=== PATIENT | female | born 1980 | race African-American/Black ===

== ENCOUNTER → 2017-10-26 | Day surgery (SDC) | payer OTHER ==
[~2017-10-26] VITALS: Ht 167.6 cm; Wt 93.4 kg
[~2017-10-26] MED LIST: FLEXERIL10 MG PO; VICODIN5-300 PO
--- NOTE | 2017-10-26 13:29 | Operative Report ---
Operative/Inv Procedure Report Surgery Date: 10/26/17 Name of Procedure: laparoscopy right ovarian cystectomy peritoneal washings Pre-Operative Diagnosis: Pelvic pain Post-Operative Diagnosis: Same right ovarian cyst Estimated Blood Loss: scant Surgeon/[employer] Autom[employer] Architect: Yoav BURNETT,Meme Sepulveda Anesthesia: general endotracheal tube, block Operative/Procedure Note Note: Procedure note patient was taken the operating room placed prone position after adequate induction of general anesthesia via endotracheal tube patient was placed in dorsal lithotomy the vagina from dorsal fashion bladder was catheterized examination under anesthesia performed CO2 tenaculum was placed on the Intralipid cervix on advancements removed from the vagina except a single- tooth tenaculum to surgeon regowned and gloved the abdomen was prepped and draped so fashion at the level the umbilicus a stab incision was made to allow for the entry of Veress needle the abdomen was insufflated after the Veress needle had been inserted with a negative drop test approximately 2.7 L of CO2 were injected into the abdomen on at this point to liver edge dullness. There is needle was removed a 10 mm trocar was inserted atraumatically through that trocar sheath a laparoscope was placed under direct visualization a 5 mm port was placed 2 finger breadths of symptoms pubis in the midline through that port was placed peritoneal washings were obtained at this point a needle was placed into the right ovarian cyst the cyst was drained the wall was ablated on using a Kleppinger hemostasis was apparent pictures were taken maximal CO2 was removed from the abdomen on since removed from the abdomen the incision the umbilicus the fascia was reapproximated 0 skin was reapproximated 30 was used to reapproximate the skin incision at symphysis pubis Marcaine was injected underneath both incisions on sterile dressings were applied. At the end the case single-tooth tenaculum was removed on the Sigala was removed patient was returned spine position she was awakened from anesthesia extubated and transported recovery room awake and alert with counts correct Findings: Normal uterus on normal ovaries bilaterally normal tubes otherwise normal anatomy the right tube had a simple cyst that was 9 cm no free fluid otherwise normal anatomy
== END ==
LOC: STS 02:45
DX: R10.2 Pelvic and perineal pain (principal); N83.201 Unspecified ovarian cyst, right side
CPT/HCPCS: 36415; 81025; 88305; J0131; J0694; J1200; J2250; J3490